=== PATIENT | female | born 1940 | race Caucasian/White ===

== ENCOUNTER 2017-01-02 01:52 | Emergency (ER) | payer MEDICARE, OTHER ==
--- NOTE | 2017-01-02 05:49 | ER ---
ADMIT: 01/02/2017 RM/LOC: ER [facility] MR#: [id number] [id number] [place], [place] [address] [address] [place] [address] Emergency Room Report SEX: F AGE: 76 : 1940 DATE: 01/02/2017 HISTORY OF PRESENT ILLNESS: The patient is a 76-year-old female with type 2 diabetes, hypertension, left bundle-branch block, coronary artery disease, breast cancer, and diabetes. States that her blood sugar was high and she is worried that she may go on a coma. Blood sugar at home was 223 after eating Wilber crackers and 7up. PHYSICAL EXAMINATION: GENERAL: Remarkable for anxious, disheveled-appearing female, in no acute distress. LUNGS: Clear. HEART: Regular. LABORATORY DATA: Blood sugar 197 on arrival and 197 at discharge. PLAN: Strongly encouraged follow up with Dr. Dowling today. Karthik Palafox MD/ becca JOB #: [id number] CC: Karthik Palafox MD, Attending Physician Olivier Dowling MD, Family Physician Olivier Dowling MD
[2017-04-29] MEDS ORDERED: ALTACE DPS5 MG PO (14:01)
[2017-04-29] MEDS ORDERED: GLUCOPHAGE-DPS500 MG PO (14:01)
[2017-04-29] MEDS ORDERED: COREG DPS6.25 MG PO (14:01)
[2017-04-29] MEDS ORDERED: ZOCOR DPS20 MG PO (14:02)
[2017-04-29] MEDS ORDERED: KLOR-CON M2020 ME1 PO (14:02)
[2017-04-29] MEDS ORDERED: NORVASC5 MG PO (14:02)
[2017-04-29] MEDS ORDERED: MICRONASE DPS5 MG PO (14:02)
[2017-04-29] MEDS ORDERED: SYNTHROID DP0.125 MG PO (14:02)
[2017-04-29] MEDS ORDERED: PLAVIX75 MG PO (14:02)
[2017-04-29] MEDS ORDERED: IMODIUM DPS2 MG PO (14:03)
[2017-04-29] MEDS ORDERED: TYLENOL DPS325 MG PO (14:03)
[2017-04-29] MEDS ORDERED: NITROSTAT0.4 MG SL (14:04)
== END 2017-01-02 02:55 | disposition home or self-care (01) ==
LOC: ER 01:52
DX: E11.9 Type 2 diabetes mellitus without complications (principal); I10 Essential (primary) hypertension; Z88.0 Allergy status to penicillin; Z88.2 Allergy status to sulfonamides; Z79.01 Long term (current) use of anticoagulants; Z79.899 Other long term (current) drug therapy

== ENCOUNTER 2017-03-02 18:47 | Emergency (ER) | payer MEDICARE, OTHER ==
--- NOTE | 2017-03-08 15:21 | ER ---
ADMIT: 03/02/2017 RM/LOC: ER [facility] MR#: [id number] [address] [address] [address] [place] [address] Emergency Room Report SEX: F AGE: 76 : 1940 DATE: 03/02/2017 OCCURRENCE ADDENDUM: Ms. Hill was discharged from the hospital emergency room after much delay. She kept on findings reasons to stay because she wanted to be admitted. She says she does not have anyone at home who can take care of her. Her son is somewhere out of state and even though she is capable of walking and going to the bathroom, she is saying that she is unable to care for self. She demanded food, demanded Tylenol, demanded to be admitted and refused to leave the ER until those conditions were met. I did talk to the patient in the presence of physician certified teacher assistant Kayla leonard. Mentioned to her that all her labs as a fall trauma patient on anticoagulants were negative. Her head CT scan showed no bleed and she was very able to move along and go to the bathroom. There was no need for us to admit her socially to the hospital. She stated that we were rushing her to eat the sandwich and stopped eating and threw up. I did mention to her that I would go ahead and get her another sandwich, she could eat it in the lobby, we would call a taxi cab for her to take her home and she agreed with that but was not very happy with the situation. PA studentKayla, kept on going in the room, doing things for the patient as she kept demanding and requesting things for herself. She was very rude with the nurses, very rude with every personnel that took care of her in the emergency room. I tried to explain the reasoning behind not admitting her to the hospital as I have no power to give orders to admit someone socially because they do not want to go home. She then mentioned that she ached all over and she wanted to stay so she would be taken care of in the hospital. I then proceeded to tell her that she would be sore because she fell, but we are unable to admit everyone who comes into the hospital with soreness post injury if there is no medical reason for it. I did give her 15 minutes to recoup herself, pick her bag, and get wheelchair out of the emergency room and out of room 8. She did receive a 2nd sandwich with chips that were placed in a bag that she had full of prescription medication. She was walking without any difficulty. I advised the PA student to not go in the room anymore as she was consuming the time for care of other patients in the emergency room because of ADMIT: 03/02/2017 RM/LOC: [facility] MR#: [id number] [address] [place] [id number] [place] [address] Emergency Room Report SEX: F AGE: 76 : 1940 her own needs. We were at the time extremely busy and she knew we were busy, but kept on bringing up different situations in order for us to care for her in a way that we were unable to at that time. Physically, she was able to care for self and the option was given last night when I talked to her for the second time stating that one option would be for her to be placed in a [place] [facility] [place] or go home and call family and/or friends. I did leave her disposition to the care of the nurse after reviewing all her labs and visiting her for the second time. She was extremely fixed on the fact that even with the dressing I applied to her nose, she was going to bleed, that when we removed the IV from her arm that she would bleed even though at that time there was absolutely no indication of bleeding. She was absolutely very unhelpful with personnel and very rude. MARIA FERNANDA Miller / Emmanuel Fernandez MD / becca JOB #: [id number] CC: Emmanuel Fernandez MD, Attending Physician Olivier Dowling MD, Family Physician
--- NOTE | 2017-03-10 09:05 | ER ---
ADMIT: 03/02/2017 RM/LOC: ER [facility] MR#: [id number] [address] [address] [address] MA[address] Tony [address] [place] [address] Emergency Room Report SEX: F AGE: 76 : 1940 DATE: 03/02/2017 HISTORY OF PRESENT ILLNESS: A 76-year-old female, was walking when suddenly she tripped and fell as she was going down the stairs. Her glasses flew and she had an abrasion to her left forehead and the bridge of the nose. She did have an abrasion, but it is a little deeper than the forehead and because she is on Plavix, she was brought in by the ambulance for evaluation. She did not lose consciousness. She does not have a headache. She does have a little bit of tenderness on the lower aspect of her shoulders or neck, but on C-spine palpation, there is no point tenderness in the vertebrae. PHYSICAL EXAMINATION: GENERAL: Alert and oriented. Sheffield scale of 15. VITAL SIGNS: As stated, blood pressure is 191/95, with O2 saturations 93%, respirations 14, heart rate is 103, temp is 99. HEAD: Normocephalic. She does have the abrasion, and atraumatic. HEART: Clear. LUNGS: Clear. ABDOMEN: Soft, nontender. EXTREMITIES: Well perfused. No edema. No abrasion anywhere else. PAST MEDICAL HISTORY: Includes hypothyroidism, high cholesterol, type 2 diabetes, hypertension, heart stents with bilateral mastectomy due to breast cancer and implants. IMAGING: CT of the head, negative for bleed. The abrasion in the bridge of her nose was cleansed with Hibiclens and Surgicel sheet was placed over it to help it with coagulation. A dressing will be applied and she will be released home. Refused neck imaging. CLINICAL IMPRESSION: Fall, abrasion to forehead, anticoagulated, facial injury. MARIA FERNANDA Miller / Emmanuel Fernandez MD / modl JOB #: [id number] CC: Emmanuel Fernandez MD, Attending Physician
[2017-04-29] MEDS ORDERED: GLUCOPHAGE-DPS500 MG PO (14:01)
[2017-04-29] MEDS ORDERED: COREG DPS6.25 MG PO (14:01)
[2017-04-29] MEDS ORDERED: ALTACE DPS5 MG PO (14:01)
[2017-04-29] MEDS ORDERED: NORVASC5 MG PO (14:02)
[2017-04-29] MEDS ORDERED: MICRONASE DPS5 MG PO (14:02)
[2017-04-29] MEDS ORDERED: SYNTHROID DP0.125 MG PO (14:02)
[2017-04-29] MEDS ORDERED: ZOCOR DPS20 MG PO (14:02)
[2017-04-29] MEDS ORDERED: PLAVIX75 MG PO (14:02)
[2017-04-29] MEDS ORDERED: KLOR-CON M2020 ME1 PO (14:02)
[2017-04-29] MEDS ORDERED: TYLENOL DPS325 MG PO (14:03)
[2017-04-29] MEDS ORDERED: IMODIUM DPS2 MG PO (14:03)
[2017-04-29] MEDS ORDERED: NITROSTAT0.4 MG SL (14:04)
== END 2017-03-02 21:43 | disposition home or self-care (01) ==
LOC: ER 18:47
DX: S00.81XA Abrasion of other part of head, initial encounter (principal); W10.9XXA Fall (on) (from) unspecified stairs and steps, initial encounter

== ENCOUNTER 2017-03-03 07:01 | Emergency (ER) | payer MEDICARE, OTHER ==
--- NOTE | 2017-03-04 08:46 | ER ---
ADMIT: 03/03/2017 RM/LOC: ER [facility] MR#: [id number] [address] [address] [address] [place] [address] Emergency Room Report SEX: F AGE: 76 : 1940 DATE: 03/03/2017 A 76-year-old female, brought to the Emergency Department by Rescue today after she showed up at skilled care demanding to be admitted. She was seen in the Emergency Department yesterday where she was rude. She remains rude and belligerent today demanding that she be admitted. She is a very difficult patient to assess. She says she is here to be put in the hospital and for no other reason. Her ER note was reviewed from yesterday. CBC, CMP were done today as well as a UA, the results of which were unremarkable. The patient was talked to by Retail District Manager and subsequently discharged. Instructed to follow up with Dr. Dowling on Monday. Gerhard Ramirez MD/ becca JOB #: [id number] CC: Gerhard Ramirez MD, Attending Physician Olivier Dowling MD, Family Physician
--- NOTE | 2017-03-06 10:52 | NUR ---
Received referral from ED. Spoke with pt. Pt does not want to pay privatly for a SNF (due to no qualifing hospital stay). Pt agrees with [facility]. [facility] options given. Pt requests [facility]. Referral made and info faxed. Pt agrees with referral to [facility] and referral was made.
[2017-04-29] MEDS ORDERED: ALTACE DPS5 MG PO (14:01)
[2017-04-29] MEDS ORDERED: GLUCOPHAGE-DPS500 MG PO (14:01)
[2017-04-29] MEDS ORDERED: COREG DPS6.25 MG PO (14:01)
[2017-04-29] MEDS ORDERED: SYNTHROID DP0.125 MG PO (14:02)
[2017-04-29] MEDS ORDERED: MICRONASE DPS5 MG PO (14:02)
[2017-04-29] MEDS ORDERED: NORVASC5 MG PO (14:02)
[2017-04-29] MEDS ORDERED: PLAVIX75 MG PO (14:02)
[2017-04-29] MEDS ORDERED: KLOR-CON M2020 ME1 PO (14:02)
[2017-04-29] MEDS ORDERED: ZOCOR DPS20 MG PO (14:02)
[2017-04-29] MEDS ORDERED: IMODIUM DPS2 MG PO (14:03)
[2017-04-29] MEDS ORDERED: TYLENOL DPS325 MG PO (14:03)
[2017-04-29] MEDS ORDERED: NITROSTAT0.4 MG SL (14:04)
== END 2017-03-03 09:40 | disposition home or self-care (01) ==
LOC: ER 07:01
DX: S00.83XA Contusion of other part of head, initial encounter (principal); S00.33XA Contusion of nose, initial encounter; I10 Essential (primary) hypertension; E11.9 Type 2 diabetes mellitus without complications; E03.9 Hypothyroidism, unspecified; E78.5 Hyperlipidemia, unspecified; Z88.0 Allergy status to penicillin; Z88.2 Allergy status to sulfonamides; W18.30XA Fall on same level, unspecified, initial encounter

== ENCOUNTER 2017-03-19 05:07 | Emergency (ER) | payer MEDICARE, OTHER ==
--- NOTE | 2017-03-19 18:58 | ER ---
ADMIT: 03/19/2017 RM/LOC: ER [facility] MR#: [id number] [address] [address] [address] [place] [address] Emergency Room Report SEX: F AGE: 76 : 1940 DATE: 03/19/2017 The patient is a 76-year-old female, who awoke with 3 loose stools at 3:00 a.m. with no hematochezia, nausea, vomiting, fevers, chills, cough, or urinary symptoms. Just felt weak. Transported herself to department. Exam remarkable for nontoxic, afebrile female, no acute distress. Received IV fluids oral challenge, tolerated well. Road tested well. Imodium 2 tablets in department, recommended up to 8 tablets a day as needed for diarrhea. Avoid milk, juice, and pop. Normal CBC, CRP, troponin, glucose, electrolytes, and lactic acid. Follow up with Dr. Dowling as needed. Karthik Palafox MD/ becca JOB #: [id number] CC: Karthik Palafox MD, Attending Physician Olivier Dowling MD, Family Physician Olivier Dowling MD
--- NOTE | 2017-03-21 12:42 | NUR ---
Received call from Ida Jimenez at [facility]. States she has made several attempts but has not been able to make contact with the patient.
--- NOTE | 2017-03-21 13:37 | NUR ---
Received referral from ED. Attempted to contact pt. No answer, voice mail is not set up. Per referral, pt may need help filling her precription medications.
--- NOTE | 2017-03-21 13:45 | NUR ---
Patient called back. Said she got her meds and that [facility]. Told pt that Ida with [facility] was trying to make contact with her. Pt said to have her meet her at her house tomorrow at 2pm and then hung up the phone. [facility] called and told Ida this. She states pt did this prior and she has made multiple attempts to reach her and will put the referral in as a denial.
[2017-04-29] MEDS ORDERED: COREG DPS6.25 MG PO (14:01)
[2017-04-29] MEDS ORDERED: GLUCOPHAGE-DPS500 MG PO (14:01)
[2017-04-29] MEDS ORDERED: ALTACE DPS5 MG PO (14:01)
[2017-04-29] MEDS ORDERED: NORVASC5 MG PO (14:02)
[2017-04-29] MEDS ORDERED: ZOCOR DPS20 MG PO (14:02)
[2017-04-29] MEDS ORDERED: MICRONASE DPS5 MG PO (14:02)
[2017-04-29] MEDS ORDERED: SYNTHROID DP0.125 MG PO (14:02)
[2017-04-29] MEDS ORDERED: KLOR-CON M2020 ME1 PO (14:02)
[2017-04-29] MEDS ORDERED: PLAVIX75 MG PO (14:02)
[2017-04-29] MEDS ORDERED: IMODIUM DPS2 MG PO (14:03)
[2017-04-29] MEDS ORDERED: TYLENOL DPS325 MG PO (14:03)
[2017-04-29] MEDS ORDERED: NITROSTAT0.4 MG SL (14:04)
== END 2017-03-19 07:25 | disposition home or self-care (01) ==
LOC: ER 05:07
DX: R19.7 Diarrhea, unspecified (principal); I10 Essential (primary) hypertension; E11.9 Type 2 diabetes mellitus without complications; Z88.0 Allergy status to penicillin; Z88.2 Allergy status to sulfonamides; Z79.01 Long term (current) use of anticoagulants; Z79.899 Other long term (current) drug therapy